=== PATIENT | female | born 1980 | race Caucasian/White ===

== ENCOUNTER 2024-05-22 14:51 | Emergency (ER) | payer MEDICAID ==
[~2024-05-22] VITALS: Ht 157.5 cm; Wt 58.3 kg
[2024-05-22] MEDS ORDERED: HYDR-3686 PO (15:59)
[2024-05-22] MEDS ORDERED: TRAZ-251 PO (15:59)
[2024-05-22 16:27] VITALS: BP 112/68; PULSE 90; RESP 20; TEMP 98.2; O2SAT 97
[2024-05-22] MEDS ORDERED: BUPR1FIL3 SL (16:41)
== END 2024-05-22 16:29 | disposition home or self-care (01) ==
LOC: ER 14:52
DX: F11.23 Opioid dependence with withdrawal (principal); F41.9 Anxiety disorder, unspecified; G47.00 Insomnia, unspecified
CPT/HCPCS: 99283